=== PATIENT | male | born 1975 | race Two or more races ===

== ENCOUNTER → 2024-02-29 | Outpatient (CLI) | payer OTHER ==
[2024-02-29 07:17] LABS: Urine Bacteria None Seen /hpf (None Seen)
[2024-02-29 07:25] LABS: Basophils # (auto) 0.1 10 ^3/uL (0-0.2); Basophils % (auto) 2.2 % (0.0-2.0); Eosinophils # (auto) 0.2 10 ^3/uL (0-0.8); Eosinophils % (auto) 2.6 % (0.0-7.0); Hematocrit 44.5 % (41.0-53.0); Hemoglobin 15.2 g/dL (13.5-17.5); Lymphocytes # (auto) 1.9 10 ^3/uL (0.4-5.4); Lymphocytes % (auto) 31.4 % (10.0-50.0); Mean Corpuscular Hemoglobin 29.7 pg (28.0-32.0); Mean Corpuscular Hgb Conc. 34.2 g/dL (32.0-36.0); Mean Corpuscular Volume 86.9 fL (80.0-100.0); Monocytes # (auto) 0.4 10 ^3/uL (0-1.3); Monocytes % (auto) 6.8 % (0.0-12.0); Neutrophils # (auto) 3.4 10 ^3/uL (1.6-8.6); Nucleated Red Blood Cells % 0.1 %; Platelet Count (auto) 306 10^3/uL (140-450); Red Blood Cells 5.13 10^6/uL (4.5-5.90); Red Cell Distribution Width 12.7 % (11.8-14.3)
[2024-02-29 07:31] LABS: Urine Blood Negative /uL (Negative); Urine Clarity Clear (Clear); Urine Color Colorless (Yellow); Urine Protein, UAD Negative (Negative); Urine Specific Gravity 1.011 (1.001-1.035); Urine Urobilinogen Normal (Negative); Urine WBC <1 /hpf (0 - 3)
[2024-02-29 08:03] LABS: Alanine Aminotransferase 34 U/L (7-40); Albumin 4.6 g/dL (3.2-4.8); Alkaline Phosphatase 64 U/L (46-116); Anion Gap 8 (5-15); Aspartate Aminotransferase 14 U/L (13-40); BUN/Creatinine Ratio 14.7 (10.0-20.0); Blood Urea Nitrogen 11 mg/dL (9-23); Calcium 9.8 mg/dL (8.7-10.4); Carbon Dioxide 28 mmol/L (20-31); Chloride 101 mmol/L (98-107); Glucose 123 mg/dL (74-106); LDL Cholesterol 98 mg/dL (< 100); Magnesium 1.9 mg/dL (1.6-2.6); Potassium 3.5 mmol/L (3.5-5.1); Sodium 137 mmol/L (136-145); Triglycerides 104 mg/dL (< 150)
[2024-02-29 08:04] LABS: Bilirubin, Total 0.5 mg/dL (0.2-1.0); Cholesterol 150 mg/dL (< 200); HDL Cholesterol 42 mg/dL (40-59); Total Protein 7.7 g/dL (5.7-8.2)
[2024-02-29 08:43] LABS: Uric Acid 6.4 mg/dL (3.7-9.2)
[2024-02-29 08:48] LABS: % Iron Saturation 32.8 % (20-55)
[2024-02-29 08:49] LABS: Prostate Specific Antigen 0.59 ng/mL (0.0-4.0)
[2024-02-29 08:52] LABS: Free T3 4.01 pg/mL (2.3-4.2); Free T4 (Free Thyroxine) 1.11 ng/dL (0.89-1.76)
[2024-02-29 08:53] LABS: T3 Total 1.22 ng/mL (0.60-1.81)
== END | disposition home or self-care (01) ==
LOC: LAB 07:02
PROVIDERS: ATTEND Family Medicine
DX: Z00.00 Encounter for general adult medical examination without abnormal findings (principal); I10 Essential (primary) hypertension; E78.00 Pure hypercholesterolemia, unspecified
CPT/HCPCS: 36415; 80053; 80061; 81001; 82043; 82306; 82607; 83036; 83540; 83550; 83735; 84153; 84439; 84443; 84480; 84481; 84550; 85025; 87086